=== PATIENT | female | born 1950 | race Hispanic/Latino ===

== ENCOUNTER 2023-02-28 09:59 | Outpatient (RCR) | payer OTHER ==
[~2023-02-28 09:59] MED LIST: CITALOPRAM HBR20 MG PO
== END 2023-03-02 ==
LOC: PT 09:59
PROVIDERS: ATTEND Specialist
DX: M17.12 Unilateral primary osteoarthritis, left knee (principal)

== ENCOUNTER 2023-03-10 10:00 | Outpatient (RCR) | payer OTHER | END 2023-04-02 | LOC: PT 10:00 | PROVIDERS: ATTEND Specialist | DX: M17.12 Unilateral primary osteoarthritis, left knee (principal); S83.222D Peripheral tear of medial meniscus, current injury, left knee, subsequent encounter; M70.52 Other bursitis of knee, left knee; M76.52 Patellar tendinitis, left knee; M62.81 Muscle weakness (generalized); M25.562 Pain in left knee; M25.662 Stiffness of left knee, not elsewhere classified; R26.2 Difficulty in walking, not elsewhere classified ==